=== PATIENT | male | born 1975 | race Caucasian/White ===

== ENCOUNTER 2019-11-04 13:19 | Emergency (ER) | payer OTHER, SELFPAY ==
--- NOTE | 2019-11-04 13:34 | ED.SKABFB ---
HPI - Skin/Abscess/Foreign Bdy General Chief complaint: Skin/Abscess/Foreign Body Stated complaint: swollen painful face Time Seen by Provider: 11/04/19 13:34 Source: patient and RN notes reviewed History of Present Illness HPI narrative: Patient is a 44-year-old male who presents the urgent care with complaints of right lower lip swelling with a lesion below the right lower lip. Patient states that he noticed it on and believed it to be a pimple . Patient states he did notice pain prior to noticing the area on the face. Patient states his pain radiates to the right side of the neck as well as into the right ear. Patient has been using antibiotic ointment on the area without any improvement. Denies of any other areas. No other acute complaints. No acute distress noted. Patient read the plan of care. Related Data Allergies Allergy/AdvReac Type Severity Reaction Status Date / Time No Known Allergies Allergy Unverified 11/08/18 10:16 Review of Systems Review of Systems: Narrative: CONSTITUTIONAL: Denies fever, chills, or sweats. EYES: Denies visual changes, redness, or discharge. ENT: Denies rhinorrhea, congestion, sore throat, or otalgia. CARDIOVASCULAR: Denies chest pain, palpitations, or edema. RESPIRATORY: Denies cough or dyspnea. GASTROINTESTINAL: Denies abdominal pain, nausea, vomiting, or diarrhea. GENITOURINARY: Denies dysuria or hematuria. SKIN: Reports of painful itchy lesion below the right lower lip with pain radiating to the neck and right ear sore throat MUSCULOSKELETAL: Denies back pain, joint pain, or myalgia. NEUROLOGIC: Denies headache, numbness, or weakness. All other systems reviewed are negative, except as documented in HPI. [facility] Family History Family History (Updated 04/12/16 @ 09:35 by DOCTOR UNKNOWN) Other Family history of coronary artery disease Family history of malignant neoplasm of breast Social History Social History Smoking status: Former smoker Smoking end date: 06/20/16 Alcohol intake: never Comments At the time of my signature, I reviewed and agree with the nursing past medical, surgical, social, and family history. There is no relevant family history pertinent to the patient complaint. Exam Narrative: Exam Narrative: GENERAL: This is a well-nourished, well-developed patient, in no apparent distress. HEAD: normocephalic, atraumatic. EYES: PERRL. Sclera clear/white. Vision is grossly intact. EARS: External ears normal NOSE: External nose normal with no obvious nasal discharge THROAT: Mucous membranes moist, posterior pharynx clear. Notable right lower lip swelling NECK: Neck supple SKIN: 0.25 cm pustular erythemic painful lesion noted below the right lower lip; warm, intact with no suspicious lesions or rash, good texture and turgor. NEURO: awake, alert, and oriented to person, place and time. There were no obvious focal neurologic abnormalities. EXTREMITIES: No clubbing, cyanosis, or edema. Course Vital Signs Vital signs: Vital Signs Temperature 99.1 F 11/04/19 13:39 Pulse Rate 68 11/04/19 13:39 Respiratory Rate 11/04/19 13:39 Blood Pressure 142/77 H 11/04/19 13:39 Pulse Oximetry 99 11/04/19 13:39 Temperature 99.1 F 11/04/19 13:39 Pulse Rate 68 11/04/19 13:39 Respiratory Rate 11/04/19 13:39 Blood Pressure 142/77 H 11/04/19 13:39 Pulse Oximetry 99 11/04/19 13:39 Reviewed MDM - Skin/Abscess/Foreign Bdy MDM Narrative Medical decision making narrative: Spoke to the patient regarding shingles versus impetigo. Due to the presentation of the pain prior to the lesion and the persistent pain down the neck and up into the right ear?it appears to be more consistent with shingles. Therefore advised the patient to use the cream as directed to the area. Complete oral antiviral medication as prescribed. Make sure you eat and drink with the medication. It is known to upset the stomach. Complete steroid regimen as prescrib
[2019-11-04 13:39] VITALS: BP 142/77; PULSE 68; RESP 20; TEMP 37.3; O2SAT 99
== END 2019-11-04 14:01 | disposition home or self-care (01) ==
PROVIDERS: Emergency Provider Nurse Practitioner Family; PCP Family Medicine
DX: B02.9 Zoster without complications (principal)
CPT/HCPCS: 99213; G0463